=== PATIENT | male | born 1945 | race Caucasian/White ===

== ENCOUNTER 2019-12-31 05:47 | Day surgery (SDC) | payer MEDICARE, OTHER ==
[2019-12-30 13:34] VITALS: BMI 28.5
[2019-12-31] MEDS ORDERED: Phenylephrine 2.5% Ophth Soln 5 ML BOT ONE (06:01)
[2019-12-31] MEDS ORDERED: Cyclopentolate 1% Opth Drop 2 ML BOT ONE (06:02)
[2019-12-31] MEDS ORDERED: Fluorouracil 100 MG, Enoxaparin Sodium 25 MG, EPINEPHrine 0.3 MG, Dextrose 50% 3 ML in ... IRR SCH ×2 (06:15→06:30)
[2019-12-31] MEDS ORDERED: PROPOFOL 20 ML ONE (06:32)
[2019-12-31] MEDS ORDERED: Midazolam HCl 2 mg/2 ml Vial ONE (06:32)
[2019-12-31] MEDS ORDERED: Fentanyl 100 MCG/2 ML VIAL ONE (06:32)
[2019-12-31] MEDS ORDERED: Indocyanine Green 25 MG/10 ML VIAL ONE (10:04)
[2019-12-31] MEDS ORDERED: Triamcinolone 40 MG/ML VIAL ONE (10:04)
[2019-12-31] MEDS ORDERED: Maxitrol 0.1% Opth Oint 3.5 GM TUBE ONE (10:04)
[2019-12-31] MEDS ORDERED: Lidocaine 4% PF 5 ML AMP ONE (10:04)
[2019-12-31] MEDS ORDERED: Bupivacaine PF 0.75% SDV 10 ML ONE (10:04)
[2019-12-31] MEDS ORDERED: PROPOFOL 200 MG/20 ML VIAL ONE (10:04)
--- NOTE | 2020-01-01 14:56 | OP ---
DATE OF PROCEDURE: 12/31/2019 PREOPERATIVE DIAGNOSIS: Macular hole, right eye. POSTOPERATIVE DIAGNOSIS: Macular hole, right eye. PROCEDURES PERFORMED: Pars plana vitrectomy, internal limiting membrane peel, right eye. ANESTHESIA: Local with monitored anesthesia care. DESCRIPTION OF PROCEDURE: The patient was identified in the preoperative holding area. Appropriate informed consent for the planned surgical procedure on the right eye had been obtained. The patient was transported to the operative suite. Appropriate cardiopulmonary monitoring was established. Local anesthesia was obtained using retrobulbar modified [place] Lint lid block using 50:50 mixture of 4% lidocaine and 0.75% bupivacaine. The patient was prepped and draped in usual sterile manner for ophthalmic surgery. Right eye lid speculum was placed in the right eye. A 27-gauge trocar was placed in the conjunctiva and sclera superotemporally, inferotemporally, and supranasally. Infusion line was placed inferotemporally. Light pipe and vitreous cutter inserted into the eye. Core vitrectomy was performed. Hyaloid face was elevated using vacuum suction and peeled into the periphery using the vitreous cutter. Indocyanine green dye was infused on the posterior pole x1, identifying the internal limiting membrane. This was elevated using membrane scraper and peeled across the macula using end gripping forceps. Complete air-fluid exchange was performed with 10 minutes being allowed for fluid to drain posteriorly. Periphery was inspected using indirect ophthalmoscopy. No holes, breaks, or tears were identified. Prophylactic laser was placed behind the sclerotomies. Trocar was removed and sclerotomies were suture closed with 6-0 plain gut suture. Retrobulbar Kenalog and antibiotic ointment were placed. The eye was patched and shielded. The patient was taken to the postoperative recovery unit in good condition having suffered no immediate preop complications. The patient was instructed to keep patch and shield on, avoid lifting or bending. Followup appointment with Dr. Wilkes. Job ID: [id number]
== END 2019-12-31 08:50 | disposition home or self-care (01) ==
LOC: SDC 05:47
PROVIDERS: ATTEND Ophthalmology Retina Specialist
PROC: 08T43ZZ Resection of Right Vitreous, Percutaneous Approach (ICD-10-PCS; principal; 2019-12-31)
PROC: 08NE3ZZ Release Right Retina, Percutaneous Approach (ICD-10-PCS; 2019-12-31)
DX: H35.341 Macular cyst, hole, or pseudohole, right eye (principal); I10 Essential (primary) hypertension; E78.5 Hyperlipidemia, unspecified; Z88.0 Allergy status to penicillin
CPT/HCPCS: 67025; J0171; J1650; J2001; J2250; J2704; J3010; J3301; J3490; J9190